=== PATIENT | female | born 1975 | race Caucasian/White ===

== ENCOUNTER 2018-09-13 10:01 | Emergency (ER) | payer SELFPAY ==
[~2018-09-13] VITALS: Ht 165.1 cm; Wt 47.7 kg
[2018-09-13 10:03] VITALS: Ht 165.1 cm; Wt 47.7 kg
[2018-09-13] MEDS ORDERED: SOD CHLORIDE 0.9% 1,000 ML IV ONE (11:30)
[2018-09-13] MEDS: PROCHLORPERAZINE 10 MG INJ IV ONE ×2 (11:30→12:27)
[2018-09-13] MEDS ORDERED: DIPHENHYDRAMINE 50 MG INJ IV ONE (11:30)
[2018-09-13] MEDS ORDERED: HYDROmorphONE 0.5 MG/0.5 ML SYG IV STA ×2 (11:42→13:21)
[2018-09-13] MEDS ORDERED: CARB400T PO (12:23)
[2018-09-13] MEDS ORDERED: MET25 PO (12:23)
[2018-09-13] MEDS ORDERED: PHEN30TA24 PO (12:24)
[2018-09-13] MEDS ORDERED: HYDR4TAB51 PO (12:25)
[2018-09-13] MEDS ORDERED: LEVE100018 PO (12:25)
[2018-09-13] MEDS ORDERED: ONDANSETRON 4 MG INJ IV STA (13:43)
[2018-09-13] MEDS ORDERED: CARBAMAZEPINE 200 MG TAB PO ONE (14:00)
[2018-09-13] MEDS ORDERED: LEVETIRACETAM 1000 MG (PMX) 100 ML IVPB ONE (14:00)
[2018-09-13 14:15] VITALS: BP 108/16; PULSE 88; RESP 18
[2018-09-13] MEDS ORDERED: LEVETIRACETAM 500 MG (PMX) 100 ML IVPB SCH (14:30)
--- NOTE | 2018-09-13 14:35 | ERD ---
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 The patient endorses waxing and waning cramping aching epigastric pain radiating into her chest with nausea and a few episodes of nonbilious nonbloody vomiting. The patient reports decreased oral intake and feeling dehydrated. She also notes that her urine is darker than normal, but she denies any dysuria or hematuria or urgency or frequency. The patient does have p.o. Dilaudid and Zofran at home, but it is not been controlling her symptoms, which is what ultimately prompted her to come to the emergency department today. The patient denies feeling sick recently. The patient denies fever or chills. The patient has had no headache or vision changes. The patient does not endorse neck or back pain. The patient denies lightheadedness or dizziness. The patient has had no trouble breathing. The patient denies changes to bowel movements. The patient has had no focal deficits. The patient has had no weakness or numbness or tingling to the face or extremities. ROS All systems reviewed and are negative except as per history of present illness. Medications Home Meds Reported Medications Hydromorphone Hcl* (Dilaudid*) 4 Mg Tablet, 4 MG PO NEEDED PRN for PAIN, TAB 09/13/18 Levetiracetam* (Keppra*) 1,000 Mg Tablet, 1000 MG PO BID, TAB 09/13/18 Phenobarbital* (Phenobarbital*) Unknown Strength Tablet, 1 TAB PO BID, TAB 09/13/18 Carbamazepine* (Tegretol Xr*) 400 Mg Tab.sr.12h, 400 MG PO Q12, TAB.SA 09/13/18 Methotrexate* (Methotrexate*) 2.5 Mg Tab, 2.5 MG PO Q7D, TAB 09/13/18 Allergies Allergies: Coded Allergies: Penicillins (Unverified Allergy, Unknown, HIVES, 09/13/18) aspirin (Unverified Allergy, Unknown, HIVES, 09/13/18) ketorolac (Unverified Allergy, Unknown, HIVES, 09/13/18) metoclopramide (Unverified Allergy, Unknown, HIVES, 09/13/18) Uncoded Allergies: CONTRAST (Allergy, Unknown, HIVES, 09/13/18) PMhx/Soc History of Surgery: No Anesthesia Reaction: No Hx Neurological Disorder: No Hx Respiratory Disorders: No Hx Cardiac Disorders: No Hx Psychiatric Problems: No Hx Miscellaneous Medical Probl: Yes (STAGE 3 PANCREATIC CANCER MOVING TOWARD KIDNEYS) Hx Alcohol Use: Yes (FORMER HEAVY DRINKER) Hx Substance Use: No Hx Tobacco Use: No Smoking Status: Never smoker FmHx Family History: No diabetes Physical Exam Vitals Vital Signs Date Temp Pulse Resp B/P (MAP) Pulse Ox O2 O2 Flow FiO2 Time Delivery Rate 09/13/18 98.2 53 18 155/89 97 10:03 (111) Physical Exam Const: No acute distress. Cachectic. Head: Atraumatic Eyes: Normal Conjunctiva ENT: Normal External Ears, Nose. Dry mucous membranes. Neck: Full range of motion. No meningismus. Resp: Clear to auscultation bilaterally Cardio: Regular rate and rhythm, no murmurs Abd: Soft, non distended. Mild general discomfort without any exquisite tenderness. Normal bowel sounds Skin: No petechiae or rashes Back: No midline or flank tenderness Ext: No cyanosis, or edema Neur: Awake and alert Psych: Normal Mood and Affect Result Diagram: 09/13/18 1116 09/13/18 1116 Results 24 hrs Laboratory Tests Test 09/13/18 11:16 White Blood Count 3.8 10^3/ul Red Blood Count 3.62 10^6/ul Hemoglobin 11.3 g/dl Hematocrit 33.8 % Mean Corpuscular Volume 93.4 fl Mean Corpuscular Hemoglobin 31.2 pg Mean Corpuscular Hemoglobin Concent 33.4 g/dl Red Cell Distribution Width 13.2 % Platelet Count 168 10^3/UL Mean Platelet Volume 13.1 fl Immature Granulocytes % 0.300 % Neutrophils % 57.5 % Lymphocytes % 35.9 % Monocytes % 5.5 % Eosinophils % 0.3 % Basophils % 0.5 % Nucleated Red Blood Cells % 0.0 /100WBC Immature Granulocytes # 0.010 10^3/ul Neutrophils # 2.2 10^3/ul Lymphocytes # 1.4 10^3/ul Monocytes # 0.2 10^3/ul Eosinophils # 0.0 10^3/ul Basophils # 0.0 10^3/ul Nucleated Red Blood Cells # 0.0 10^3/ul Sodium Level 139 mmol/L Potassium Level 3.6 mmol/L Chloride Level 103 mmol/L Carbon Dioxide Level 27 mmol/L Anion Gap 9 Blood Urea Nitrogen 13 mg/dl Creatinine 0.61 mg/dl Est Glomerular Filtrat Rate mL/min > 60 mL/min Glucose Level 69 mg/dl Calcium Level 8.8 mg/dl Total Bilirubin 0.4 mg/dl Direct Bilirubin 0.00 mg/dl Indirect Bilirubin 0.4 mg/dl Aspartate Amino Transf (AST/SGOT) 57 IU/L Alanine Aminotransferase (ALT/SGPT) 75 IU/L Alkaline Phosphatase 177 IU/L Troponin I < 0.012 ng/ml Total Protein 6.6 g/dl Albumin 3.8 g/dl Lipase 47 U/L Current Medications Medications Dose Sig/Gerard Start Time Status Last (Trade) Ordered Route PRN Stop Time Admin Dose Reason Admin Sodium 1,000 ml @ Q1H ONCE 09/13/18 DC 09/13/18 Chloride 1,000 mls/hr IV 11:30 12:28 09/13/18 12:29 10 mg ONCE ONCE 09/13/18 DC Prochlorperaz IV 11:30 ine 09/13/18 11:31 (Compazine Inj) 25 mg ONCE ONCE 09/13/18 DC 09/13/18 Diphenhydrami IV 11:30 12:28 ne HCl 09/13/18 11:31 (Benadryl) 0.5 mg ONCE STAT 09/13/18 DC 09/13/18 Hydromorphone IV 11:42 12:27 HCl 09/13/18 11:45 (Dilaudid) 1 mg ONCE STAT 09/13/18 DC 09/13/18 Hydromorphone IV 13:21 13:31 HCl 09/13/18 13:23 (Dilaudid) Ondansetron 8 mg ONCE STAT 09/13/18 DC 09/13/18 HCl (Zofran IV 13:43 13:51 Inj) 09/13/18 13:44 100 ml @ ONCE ONCE 09/13/18 DC Levetiracetam 400 mls/hr IVPB 14:00 09/13/18 14:05 400 mg ONCE ONCE 09/13/18 DC Carbamazepine PO 14:00 (Tegretol) 09/13/18 14:01 100 ml @ Q15M IVPB 09/13/18 09/13/18 Levetiracetam 400 mls/hr 14:30 14:31 09/13/18 14:59 Procedures/MDM MDM The patient's presentation warrants further investigation. Previous medical records, if available, were reviewed. LABS The patient's laboratory testing was obtained and reviewed. No emergent treatment was required unless described below. CBC: Mild leukopenia without shift, likely related to her chemotherapy, no neutropenia, low clinical suspicion for a systemic infection. Mild normocytic anemia, not emergent. Normal platelet count. Chemistry: No E/o severe acidosis or alkalosis or renal failure or diabetic ketoacidosis. Transaminitis, likely associated with her known pancreatic cancer. Lipase: No E/o pancreatitis Troponin: No E/o acute ischemia EKG EKG read by me: Rate/Rhythm: Sinus rhythm with a sinus arrhythmia at 69 bpm Intervals: Normal [place]: Normal Impression: LVH with early repolarization. Sinus arrhythmia. No evidence of acute ischemia IMAGING Imaging and Radiology interpretation reviewed. CXR FINDINGS: Support Hardware: None Cardiovascular: The cardiovascular silhouette appears unremarkable. Lung Richardson: The lung richardson appear clear with no nodule, alveolar infiltrate, or interstitial prominence evident. Pleural Spaces: No pneumothorax or pleural effusion is identified. Osseous Structures: Mild diffuse degenerative enthesopathy of the thoracic spine is noted. Soft Tissues: The soft tissues appear unremarkable. IMPRESSION: 1. Unremarkable portable chest without evidence of active cardiopulmonary disease.. 2. Mild diffuse degenerative enthesopathy of the thoracic spine. Electronically viewed and signed by Whitney Carson Physician on 09/13/2018 10:46 TREATMENT/DISPOSITION The patient presents for exacerbated chronic pain and myalgias, likely associated with her chemotherapy regimen. The patient was evaluated fully without any emergent diagnoses present. The patient requires management for pain control. She is given Dilaudid in the emergency department with some improvement. The patient was also treated with Zofran for nausea. The patient was offered Reglan, but she declined as she is previously had akathisia from this. The patient reports that Zofran has not been helping at home. She reports that Phenergan has helped in the past. We do not have IV Phenergan in the emergency department, but she will be given a prescription. I do suspect that the patient's abdominal pain is related to her pancreatic cancer. The patient does have transaminitis, which I suspect is associated with her known cancer diagnosis. The patient does not have any evidence of peritonitis. The patient does not have clinical symptoms concerning for mesenter ic ischemia or ischemic colitis. The patient does not have right upper quadrant tenderness, and I have low suspicion for gallstones, cholecystitis or biliary colic. The patient does not have any epigastric pain. I have low suspicion for gastritis, PUD or GERD. The patient does not have any right lower quadrant tenderness, or periumbilical tenderness. I have low suspicion for appendicitis. The patient does not have suprapubic tenderness. I have decreased suspicion for cystitis. The patient does not have any left lower quadrant tenderness, and I have low suspicion for diverticulosis or diverticulitis. The patient does not have any flank tenderness. The patient does not have gross hematuria. I have decreased suspicion for nephrolithiasis or renal colic. The patient does not have any palpable pulsatile mass or severe abdominal pain radiating to the back. I have low suspicion for aortic aneurysm, dissection or rupture. The patient's chest xray does not reveal pneumonia or pneumothorax or pleural effusions or pulmonary edema. The patient does not have a widened mediastinum and does not have signs or symptoms concerning for thoracic aortic aneurysm or dissection. The patient does not have pneumomediastinum or signs concerning for esophageal tear or rupture. The patient has no clinical or radiographic signs of pericardial effusion or tamponade. The patient does not have pneumoperitoneum and I have decreased suspicion of viscus perforation as possible referred pain. The patient does not have a history of heart failure and I have low suspicion for this. The patient does not have a diagnosis of COPD and is not wheezing today. The patient is not tachypneic or hypoxic. The patient is breathing comfortably and without pleuritic pain. The patient is not on hormonal therapy. The patient has no history of clotting or bleeding disorders. The patient has no calf tenderness. The patient has had no hemoptysis. I have decreased suspicion for PE. The patient's troponin and EKG are reassuring. I have low suspicion for acute coronary syndrome. DISCHARGE Upon reevaluation of the patient, symptoms have improved. No emergent diagnoses were identified. At this time, I feel that the patient stable for discharge. The patient was instructed to follow-up with a primary care physician in 1-3 days. The patient will be given strict precautions with which to return to the emergency department. Prescriptions: Phenergan The patient's blood pressure was elevated at greater than 120/80 while in the emergency department. The patient was otherwise stable with no evidence of hypertensive urgency or emergency. The patient does not require admission for blood pressure control. I have discussed with the patient the risks of hypertension. I have instructed the patient to return to the ER for any new or worsening symptoms including chest pain, shortness of breath, headache, blurred vision, confusion, nausea, vomiting or LOC. I have advised the patient to follow up with the primary care physician for outpatient monitoring and treatment for hypertension in 1-3 days. Disclaimer: Inadvertent spelling and grammatical errors are likely due to EHR/dictation software use and do not reflect on the overall quality of patient care. Note that the electronic time recorded on this note does not necessarily reflect the actual time of the patient encounter. Departure Diagnosis: Primary Impression: Myalgia Additional Impressions: Chronic pain Chronic pain type: due to neoplasm Qualified Codes: G89.3 - Neoplasm related pain (acute) (chronic) Nonspecific chest pain Chronic abdominal pain Leukopenia Leukopenia type: unspecified Qualified Codes: D72.819 - Decreased white blood cell count, unspecified Normocytic anemia Transaminitis Condition: Stable Patient Instructions: Chemotherapy, Chronic Pain, Myalgias, What Is Pancreatic Cancer? Additional Instructions: Thank you for for coming to [facility] for your care today. Please ask your nurse or provider if you have questions about your care today and do not leave until all your questions have been answered. Please use any medications given as directed and follow-up with your doctor (or the doctor you were referred to) in the next 1-3 days. If you do not have a primary care doctor you may follow up at the [facility] or [facility] (listed below). You may also use motrin and tylenol as needed for fever and/or pain unless instructed otherwise by your provider or nurse. Indications for more urgent follow-up have been discussed, but you may return to the Emergency Department at ANY time for any worrisome or worsening symptoms. If you have abdominal pain, please know that no test or exam you received is perfect and you should follow up within 8 hours for continued pain. If you had any imaging studies today, such as an X-Ray or CT Scan, these studies will be reviewed later by a radiologist. You will be called if there are important findings that were not identified today, so make sure the contact information you provided at registration is correct. If you received any narcotic pain control medicine today, such as Vicodin, Morphine or Dilaudid, your coordination and judgment may be affected for a number of hours. Please do not drive or operate heavy machinery, and you may want someone to assist you at home. If you were given a prescription for narcotic medication, be aware that it is very addictive- use sparingly and only if necessary. PLEASE SEEK FURTHER EVALUATION AND MANAGEMENT AT YOUR DOCTORS OFFICE WITHIN THE NEXT 1-3 DAYS. IT IS YOUR RESPONSIBILITY TO MAKE AN APPOINTMENT FOR FOLOW-UP CARE. IF YOU HAVE A PRIMARY DOCTOR, PLEASE CALL THEIR OFFICE TO SCHEDULE AN APPOINTMENT FOR FOLLOW UP. IF YOU DO NOT HAVE A PRIMARY DOCTOR YOU CAN CALL OUR PHYSICIAN REFERRAL HOTLINE AT IF YOU CAN NOT AFFORD TO SEE A PHYSICIAN YOU CAN CHOSE FROM THE FOLLOWING [facility] CLINICS: [facility] [address] [facility]. [facility] [address] [facility] [facility] [address] [facility] [facility] [address] [facility]. [facility] [address] [facility]. [facility]. [address] AVNI CORMIER MD Sep 13, 2018 14:33
[2018-09-13] MEDS ORDERED: PROM25TA14 PO (14:45)
== END 2018-09-13 15:19 | disposition home or self-care (01) ==
LOC: E/R 10:01
DX: R07.9 Chest pain, unspecified (principal); M79.10 Myalgia, unspecified site; G89.3 Neoplasm related pain (acute) (chronic); D72.819 Decreased white blood cell count, unspecified; R74.0 Nonspecific elevation of levels of transaminase and lactic acid dehydrogenase [LDH]; D64.9 Anemia, unspecified; R10.84 Generalized abdominal pain; C25.9 Malignant neoplasm of pancreas, unspecified; C79.01 Secondary malignant neoplasm of right kidney and renal pelvis; C79.02 Secondary malignant neoplasm of left kidney and renal pelvis
CPT/HCPCS: 36415; 71045; 80048; 80076; 81001; 83690; 84484; 85025; 93005; 96374; 96375; 96376; 99285; J0780; J1170; J1200; J1953; J2405; J7030